=== PATIENT | female | born 1945 | race Caucasian/White ===

== ENCOUNTER → 2016-07-11 | Day surgery (SDC) | payer MEDICARE, BC ==
[~2016-07-11] MED LIST: B12-1CHW CHEW; CHOL20003 PO; CLON.5 PO; FURO40TA PO; HYDR-3533 PO; IBUP-988 PO; IBUP200C PO; INCOBOTULINUMTOXINA 100 UNITS VIAL IM ONE; LEXA20TA PO; LORA-373 PO; MAGN250T10 PO; NAPR250T57 PO; NAPR500 PO; PREV10CA PO; PREV30CA11 PO; ROSU5 PO; SODIUM CHLORIDE 0.9% 10 ML VIAL ONE; [UNRECOGNIZED DRUG - CODE] PO
--- NOTE | 2016-07-12 13:34 | M6 ---
cc: SUMAYA IBANEZ M.D. DATE 07/11/2016 DATE OF 1945 PROCEDURE Injection botulinum toxin type A (Xeomin) right trapezius and posterior cervical musculature. PREPROCEDURE DIAGNOSIS Torsion dystonia and painful muscle spasticity. PROCEDURE NOTE History and physical was completed and signed. Consent was signed. Procedure site was marked. Medications were listed and reconciled. Pain score was recorded. Allergies were noted. Time out was taken. Fluoroscopy time was recorded where applicable. Blood pressure cuff, pulse oximeter were applied. The patient was placed in the sitting position. The skin over the right trapezius and cervical area was prepped with alcohol. The areas of greatest spasticity were identified. A 27 gauge needle was used to inject a total of 150 units of Xeomin at six different locations corresponding to the areas of greatest spasticity. Following this, the patient was observed in recovery area with stable vital signs prior to being discharged. W. MD TAVO Ojeda/JOANNA /7:23 AM /1:32 PM
== END | disposition home or self-care (01) ==
LOC: PHSDC 06:29
PROVIDERS: ATTEND Pain Medicine Interventional Pain Medicine
DX: G24.3 Spasmodic torticollis (principal)
CPT/HCPCS: 64616; J0588